=== PATIENT | male | born 1950 | race Caucasian/White ===

== ENCOUNTER 2016-12-01 10:23 | Emergency (ER) | payer MEDICARE, BC ==
[2016-12-01 10:50] LABS: Hemoglobin 14.1 gm/dL (13.5-18.0); Mean Cell Volume 85.9 fl (78-100); Mean Corpuscular Hemoglobin 28.8 pg (27-31); Mean Corpuscular Hgb Conc 33.6 g/dl (32-36); Mean Platelet Volume 9.3 fl (6.0-9.5); Neutrophil # 5.2 K/mm3 (1.3-6.0); Neutrophil % 72.5 % (42-75.0); Platelet Count 278 K/mm3 (150-450); Red Blood Count 4.89 M/mm3 (4.7-6.0); Red Cell Distribution Width 13.6 % (11.5-14.0); White Blood Count 7.2 K/mm3 (4.0-10.5)
--- NOTE | 2016-12-01 10:52 | ERNOTE ---
Chest Pain/Cardiac HPI Chief Complaint: Chest Pain Time Seen by Provider: 12/01/16 10:43 Source: patient, family Exam Limitations: no limitations Immunizations: IMMUNIZATION HX Immunizations Up to Date Yes Immunizations Comment shingles History of Influenza Vaccine Yes Hx Pneumococcal Vaccination Yes Allergies/Adverse Reactions: Allergies No Known Allergies Allergy (Verified 12/01/16 10:34) Home Medications: HOME MEDICATIONS Levothyroxine Sodium [Tirosint] 100 mcg PO DAILY 09/10/13 [Last Taken 09/09/13 07:00 50 MCG] [place]-3/Dha/Epa/Fish Oil [[place]-3 Fish Oil Softgel] 1 each PO DAILY 09/10/13 [ Last Taken 09/09/13 07:00 1 EACH] Warfarin Sodium [Coumadin] 2.5 mg PO ONCE 09/10/13 [Last Taken 09/08/13 21:00 2.5 MG] Warfarin Sodium [Coumadin] 5 mg PO ONCE 09/10/13 [Last Taken 09/09/13 21:00 5 MG ] Tamsulosin HCl [Flomax] 0.4 mg PO DAILY@1800 #30 cap 05/11/16 [Last Taken Unknown] Cetirizine HCl [Zyrtec] 10 mg PO DAILY 12/01/16 [Last Taken Unknown] Diltiazem HCl [Diltiazem 12Hr ER] 120 mg PO DAILY 12/01/16 [Last Taken Unknown] Omeprazole 40 mg PO DAILY 12/01/16 [Last Taken Unknown] Sucralfate [Carafate] 1 gm PO BID #28 tab 12/01/16 [Last Taken Unknown] Narrative: Patient presents with several complaints today. He complains of general overall fatigue with chronic shortness of breath and he also has epigastric burning that goes up substernally. Patient recently had his blood pressure medicine changed from metoprolol to Cardizem because of poorly controlled fibrillation. Gastric burning and substernal burning has been ongoing for the past week or 2 and he describes it as moderate in intensity. Timing: constant Severity/Quality: moderate, burning Location: substernal, epigastric Chest Pain Radiation: no radiation Activities at Onset: none Modifying Factors - Improves: Present: nothing Modifying Factors - Worsens: Present: nothing Aspirin Treatment Today: no aspirin today Associated Symptoms: Present: heartburn Prior Chest Pain/Cardiac Workup: Reports: non-cardiac Prior Treatment: Reports: recently seen, treated by physician Review of Systems - Review of Systems Constitutional: Present: See HPI EYE: Present: no symptoms reported ENT: Present: no symptoms reported Respiratory: Present: shortness of breath Cardiology: Present: palpitations Gastrointestinal/Abdominal: Present: abdominal pain Genitourinary: Present: no symptoms reported Musculoskeletal: Present: no symptoms reported Skin: Present: no symptoms reported Neurological: Present: no symptoms reported Endocrine: Present: no symptoms reported Hematologic/Lymphatic: Present: no symptoms reported Psych: Present: no symptoms reported - Patient's Past Medical History Patient History - Medical: Hypothyroidism Patient History - Cardiac/Respiratory: Atrial Fibrillation, Hypertension, Hyperlipidemia Patient History - Cancer: No Hx of Cancer Patient History - Surgical Procedures: Other Patient History - Other: None - Social History Living Situations: home Psych History: No pertinent hx Smoking Status: Never smoker Alcohol Use: occasionally Drug Use: none - Immunizations Immunizations Up to Date: Yes Hx Pneumococcal Vaccination: Yes History of Influenza Vaccine: Yes Physical Exam - Physical Exam General Appearance: Present: wd/wn, alert, moderate distress Eye Exam: Normal inspection: bilateral, PERRL: bilateral Ears, Nose, Throat: Present: normal ENT inspection, H, normal pharynx Neck: Present: normal inspection, nontender Respiratory: Present: no respiratory distress, normal breath sounds, no accessory muscle use, chest nontender, lungs clear Cardiovascular/Chest: Present: no murmur, normal peripheral pulses, irregularly irregular Gastrointestinal/Abdominal: Present: normal bowel sounds, nondistended, soft, no organomegaly, tenderness - in the epigastric region Rectal Exam: Present: deferred Back Exam: Present: normal inspection, normal range of motion Extremity Exam: Present: normal inspection, non-tender, no edema, normal range of motion Neurological Exam: Present: alert, oriented, normal mood/affect Skin Exam: Present: normal color, warm/dry Lymphatic Exam: Present: no adenopathy ED Progress - Results and Orders Patient's Lab Results:: I have reviewed the patient's lab results. - Vital Signs Patient's Vital Signs:: I have reviewed the patient's vital signs. Vital Signs: Vital Signs 12/01/16 10:29 Pulse Rate 69 Respiratory 16 Rate Blood Pressure 114/70 O2 Sat by Pulse 98 Oximetry - EKG EKG: atrial fibrillation - X-Ray X-Ray #1 X-Ray: chest Interpretation: Reviewed by me - Progress/Reassessment Chief Complaint: Chest Pain Progress:: Improved Plan - Plan Plan: Patient responded nicely to the GI cocktail and I suspect that he has underlying GERD. I also suspect that much of his shortness of breath from exertion is coming from his chronic A. fib and I will refer patient back to Dr. Martinez for ongoing care. Departure - Departure Clinical Impression: Atrial fibrillation Qualifiers: Atrial fibrillation type: chronic Qualified Code(s): I48.2 - Chronic atrial fibrillation GERD (gastroesophageal reflux disease) Qualifiers: Esophagitis presence: with esophagitis Qualified Code(s): K21.0 - Gastro- esophageal reflux disease with esophagitis Disposition: Home self-care Condition: Good Instructions: Heartburn, [id number], Atrial Fibrillation, [id number] Referrals: Yoly Martinez DO [Primary Care Provider] - Prescriptions: Sucralfate [Carafate] 1 gm PO BID #28 tab
[2016-12-01 10:54] LABS: Prothrombin Time (Patient) 22.7 Seconds (9.4-11.4)
[2016-12-01 10:56] LABS: INR 2.18 INR (0.90-1.10); Partial Thrombolplastin Time 35.6 Seconds (24-32)
[2016-12-01] MEDS: LIDOCAINE HCL 20 ML UDC PO ONE (11:00)
[2016-12-01] MEDS: BELLADONNA ALKALOIDS/PHENOBARB 60 ML BTL PO ONE (11:00)
[2016-12-01] MEDS: MAG HYDROX/ALUMINUM HYD/SIMETH 30 ML UDC PO ONE (11:00)
[2016-12-01 11:08] LABS: ALT 18 U/L (19-67); AST 10 U/L (0-48); Albumin * 3.7 gm/dl (3.4-5.0); Alkaline Phosphatase * 64 U/L (50-170); Anion Gap 10.9 mmol/L (6.8-13.8); BUN/Creatinine Ratio 12.8 (9.0-21.6); Bilirubin, Total 0.9 mg/dL (0.0-1.1); Blood Urea Nitrogen 14 mg/dL (6-23); Ca. Corrected For Albumin 8.6 mg/dL (8.4-10.2); Calcium * 8.7 mg/dL (7.9-10.9); Carbon Dioxide 25.8 mmol/L (24-32.6); Chloride 105 mmol/L (97-106); Glucose * 139 mg/dL (70-110); Potassium 3.7 mmol/L (3.4-4.6); Sodium 138 mmol/L (132-142)
[2016-12-01 11:09] LABS: Troponin I Less than 0.017 ng/ml (0.00-0.10)
[2016-12-01 11:18] LABS: Urine Bilirubin Negative (NEGATIVE); Urine Blood Negative /ul (NEGATIVE); Urine Ketone Negative (NEGATIVE); Urine Nitrite Negative (NEGATIVE); Urine Protein Negative (NEGATIVE); Urine Specific Gravity <=1.005 SP.GR. (1.005-1.030); Urine Urobilinogen Normal (NORMAL)
[2016-12-01 11:24] LABS: Urine Appearance Clear; Urine Bacteria None Seen; Urine Color Yellow; Urine RBC None Seen /hpf (0-5); Urine WBC None Seen /hpf (0-5)
[2016-12-01 12:40] VITALS: BP 117/78
== END 2016-12-01 12:37 | disposition home or self-care (01) ==
LOC: ER 10:23
DX: I48.2 Chronic atrial fibrillation (principal); K21.0 Gastro-esophageal reflux disease with esophagitis

== ENCOUNTER 2016-12-04 15:10 | Emergency (ER) | payer MEDICARE, BC ==
[2016-12-04 16:02] LABS: Hematocrit 41.6 % (42.0-52.0); Hemoglobin 13.9 gm/dL (13.5-18.0); Mean Cell Volume 86.1 fl (78-100); Mean Corpuscular Hemoglobin 28.8 pg (27-31); Mean Corpuscular Hgb Conc 33.4 g/dl (32-36); Mean Platelet Volume 9.1 fl (6.0-9.5); Neutrophil # 5.1 K/mm3 (1.3-6.0); Neutrophil % 69.7 % (42-75.0); Platelet Count 258 K/mm3 (150-450); Red Blood Count 4.83 M/mm3 (4.7-6.0); Red Cell Distribution Width 13.8 % (11.5-14.0); White Blood Count 7.3 K/mm3 (4.0-10.5)
[2016-12-04 16:11] LABS: ALT 15 U/L (19-67); AST 9 U/L (0-48); Albumin * 3.7 gm/dl (3.4-5.0); Alkaline Phosphatase * 71 U/L (50-170); Anion Gap 13.5 mmol/L (6.8-13.8); BUN/Creatinine Ratio 14.3 (9.0-21.6); Bilirubin, Total 0.8 mg/dL (0.0-1.1); Blood Urea Nitrogen 14 mg/dL (6-23); Ca. Corrected For Albumin 8.4 mg/dL (8.4-10.2); Calcium * 8.5 mg/dL (7.9-10.9); Carbon Dioxide 25.5 mmol/L (24-32.6); Chloride 104 mmol/L (97-106); Glucose * 107 mg/dL (70-110); Sodium 139 mmol/L (132-142); Total Protein 7.2 gm/dL (6.2-8.2)
[2016-12-04 16:12] LABS: Troponin I Less than 0.017 ng/ml (0.00-0.10)
[2016-12-04 16:14] LABS: Prothrombin Time (Patient) 26.8 Seconds (9.4-11.4)
[2016-12-04] MEDS ORDERED: MAG HYDROX/ALUMINUM HYD/SIMETH 30 ML UDC PO ONE (16:43)
[2016-12-04] MEDS ORDERED: LIDOCAINE HCL 20 ML UDC PO ONE (16:43)
[2016-12-04] MEDS ORDERED: SUCRALFATE 1 G/10 ML UDC PO ONE (16:43)
[2016-12-04 16:48] LABS: INR 2.58 INR (0.90-1.10)
--- NOTE | 2016-12-04 16:53 | ERNOTE ---
Chest Pain/Cardiac HPI Chief Complaint: Chest Pain Time Seen by Provider: 12/04/16 16:18 Source: patient Exam Limitations: no limitations Immunizations: IMMUNIZATION HX Immunizations Up to Date Yes History of Influenza Vaccine Yes Hx Pneumococcal Vaccination Yes Allergies/Adverse Reactions: Allergies No Known Allergies Allergy (Verified 12/04/16 16:37) Home Medications: HOME MEDICATIONS Levothyroxine Sodium [Tirosint] 100 mcg PO DAILY 09/10/13 [Last Taken 09/09/13 07:00 50 MCG] [place]-3/Dha/Epa/Fish Oil [[place]-3 Fish Oil Softgel] 1 each PO DAILY 09/10/13 [ Last Taken 09/09/13 07:00 1 EACH] Warfarin Sodium [Coumadin] 2.5 mg PO ONCE 09/10/13 [Last Taken 09/08/13 21:00 2.5 MG] Warfarin Sodium [Coumadin] 5 mg PO ONCE 09/10/13 [Last Taken 09/09/13 21:00 5 MG ] Tamsulosin HCl [Flomax] 0.4 mg PO DAILY@1800 #30 cap 05/11/16 [Last Taken Unknown] Cetirizine HCl [Zyrtec] 10 mg PO DAILY 12/01/16 [Last Taken Unknown] Diltiazem HCl [Diltiazem 12Hr ER] 120 mg PO DAILY 12/01/16 [Last Taken Unknown] Omeprazole 40 mg PO DAILY 12/01/16 [Last Taken Unknown] Sucralfate [Carafate] 1 gm PO BID #28 tab 12/01/16 [Last Taken Unknown] Narrative: Patient has had intermittent chest pain for two weeks. He was seen in the walk in clinic once and in the ER three days ago, lab test and FKG did not show anything acute, GI cocktail relieve his symptoms for two days. Symptoms started to again last night after watering his garden, no symptoms while sleepling He has a history of a-fib for many years, no history of CAD Timing: intermittent Severity/Quality: mild Location: central, epigastric Chest Pain Radiation: no radiation Activities at Onset: activity Nitro Today/Relief: no nitro taken today Review of Systems - Review of Systems Constitutional: Present: fatigue, malaise. Absent: recent illness EYE: Absent: vision changes ENT: Absent: sore throat Respiratory: Present: shortness of breath Cardiology: Present: See HPI, chest pain Gastrointestinal/Abdominal: Present: abdominal pain - epigastric. Absent: nausea, vomiting, diarrhea Genitourinary: Absent: frequency Neurological: Absent: headache, weakness, numbness - Patient's Past Medical History Patient History - Medical: GERD, Hypothyroidism, Kidney stone Patient History - Cardiac/Respiratory: Atrial Fibrillation, Hypertension, Hyperlipidemia Patient History - Cancer: No Hx of Cancer Patient History - Surgical Procedures: Other Patient History - Other: None - Social History Living Situations: home Psych History: No pertinent hx Smoking Status: Never smoker Have you smoked in the past 12 months: No Alcohol Use: occasionally Drug Use: none - Immunizations Immunizations Up to Date: Yes Hx Pneumococcal Vaccination: Yes History of Influenza Vaccine: Yes Physical Exam - Physical Exam General Appearance: Present: wd/wn, alert, no apparent distress, obese Ears, Nose, Throat: Present: normal pharynx Respiratory: Present: no respiratory distress, normal breath sounds, no accessory muscle use, lungs clear, chest tenderness - parasternal Cardiovascular/Chest: Present: regular rate, rhythm, no murmur Gastrointestinal/Abdominal: Present: normal bowel sounds, nondistended, soft, tenderness - epigastric Extremity Exam: Present: no edema Neurological Exam: Present: alert, oriented, normal mood/affect Skin Exam: Present: normal color, warm/dry ED Progress - Results and Orders Patient's Lab Results:: I have reviewed the patient's lab results. - Vital Signs Patient's Vital Signs:: I have reviewed the patient's vital signs. Vital Signs: Vital Signs 12/04/16 12/04/16 15:10 15:17 Temperature 36.8 C Pulse Rate 76 Respiratory 18 Rate Blood Pressure 114/70 145/80 O2 Sat by Pulse 99 Oximetry - EKG EKG: atrial fibrillation, unchanged from - 12/01/2016 EKG read: Interp. by me - X-Ray X-Ray #1 X-Ray: chest - diffuse hyperinflation, no acute changes Interpretation: Reviewed by me - Progress/Reassessment Chief Complaint: Chest Pain Progress Note-Subjective: 12/04/16 16:51 discussed results with patient and family, serial labs and EKG normal, CAD not completely ruled out but less likely than GERD at this point, still recommended further evaluation 12/04/16 17:18 pain completely resolved after GI cocktail again Departure - Departure Clinical Impression: GERD (gastroesophageal reflux disease) Qualifiers: Esophagitis presence: esophagitis presence not specified Qualified Code(s): K21.9 - Gastro-esophageal reflux disease without esophagitis Disposition: Home self-care Condition: Good Instructions: Heartburn, [id number] Additional Instructions: consider calling Dr Mckeon for follow up follow up with Dr Martinez as scheduled Referrals: Yoly Martinez DO [Primary Care Provider] -
[2016-12-04 17:25] VITALS: BP 135/73
== END 2016-12-04 17:26 | disposition home or self-care (01) ==
LOC: ER 15:10
DX: K21.9 Gastro-esophageal reflux disease without esophagitis (principal); E03.9 Hypothyroidism, unspecified; I48.91 Unspecified atrial fibrillation; Z79.01 Long term (current) use of anticoagulants; I10 Essential (primary) hypertension; E78.5 Hyperlipidemia, unspecified

== ENCOUNTER 2017-03-04 23:45 | Emergency (ER) | payer MEDICARE, BC ==
[2017-03-05 00:45] LABS: Urine Bilirubin Negative (NEGATIVE); Urine Blood 250 /ul (NEGATIVE); Urine Ketone Negative (NEGATIVE); Urine Nitrite Negative (NEGATIVE); Urine Protein 15 mg/dL (NEGATIVE); Urine Specific Gravity 1.025 SP.GR. (1.005-1.030); Urine Urobilinogen Normal (NORMAL); Urine pH 5.5 pH (5.0-7.0)
[2017-03-05] MEDS ORDERED: KETOROLAC TROMETHAMINE 30 MG/ML VIAL IV ONE (00:49)
[2017-03-05] MEDS ORDERED: ONDANSETRON HCL/PF 2 MG/ML VIAL IV ONE ×2 (00:49→02:42)
[2017-03-05] MEDS ORDERED: NORMAL SALINE 1,000 ML IV ONE (00:49)
--- NOTE | 2017-03-05 00:51 | ERNOTE ---
ER Male HPI Stated Complaint: DORIS DUARTE ER Male: testicular pain Time Seen by Provider: 03/05/17 00:43 Source: patient Exam Limitations: no limitations Immunizations: IMMUNIZATION HX Immunizations Up to Date Yes History of Influenza Vaccine Yes Hx Pneumococcal Vaccination Yes Allergies/Adverse Reactions: Allergies No Known Allergies Allergy (Verified 12/04/16 16:37) Home Medications: HOME MEDICATIONS Levothyroxine Sodium [Tirosint] 112 mcg PO DAILY 09/10/13 [Last Taken 09/09/13 07:00 50 MCG] [place]-3/Dha/Epa/Fish Oil [[place]-3 Fish Oil Softgel] 1 each PO DAILY 09/10/13 [ Last Taken 09/09/13 07:00 1 EACH] Warfarin Sodium [Coumadin] 2.5 mg PO SUWE 09/10/13 [Last Taken 09/08/13 21:00 2.5 MG] Warfarin Sodium [Coumadin] 5 mg PO MOTUTHFRSA 09/10/13 [Last Taken 09/09/13 21: 00 5 MG] Tamsulosin HCl [Flomax] 0.4 mg PO DAILY@1800 #30 cap 05/11/16 [Last Taken Unknown] Diltiazem HCl [Diltiazem 12Hr ER] 240 mg PO DAILY 12/01/16 [Last Taken Unknown] Omeprazole 40 mg PO BID 12/01/16 [Last Taken Unknown] HYDROcodone/ACETAMINOPHEN [[place] 5-325 Tablet] 1 - 2 each PO Q4H PRN #20 tablet 03/05/17 [Last Taken Unknown] Ondansetron HCl [Zofran] 1 - 2 tab PO Q8H PRN #10 tab 03/05/17 [Last Taken Unknown] - History of Present Illness Narrative: Pt states he lay down to sleep and began to have testicular pain, He got up to urinate but was unable to. He went back to bed and got up to have a BM which did relieve some pain. Pain then increased again and he presented to the ED. Timing: Present: getting worse Quality: Present: moderate, aching Onset Location: Present: scrotal Activities at Onset: Present: rest Prior Abdominal Problems: Present: other Review of Systems - Review of Systems Constitutional: Absent: recent illness EYE: Present: no symptoms reported ENT: Present: no symptoms reported Respiratory: Absent: shortness of breath Cardiology: Absent: chest pain Gastrointestinal/Abdominal: Present: nausea, vomiting. Absent: abdominal pain Genitourinary: Present: See HPI Musculoskeletal: Present: no symptoms reported Skin: Present: no symptoms reported Neurological: Present: no symptoms reported Endocrine: Present: no symptoms reported Hematologic/Lymphatic: Present: no symptoms reported Psych: Present: no symptoms reported - Patient's Past Medical History Patient History - Medical: GERD, Hypothyroidism, Kidney stone Patient History - Cardiac/Respiratory: Atrial Fibrillation, Hypertension, Hyperlipidemia Patient History - Cancer: No Hx of Cancer Patient History - Surgical Procedures: Colonoscopy, T & A, Orthopedic Patient History - Other: None - Social History Living Situations: spouse Abuse History: No History of abuse Psych History: No pertinent hx Smoking Status: Never smoker Have you smoked in the past 12 months: No Do you dip or chew tobacco: No Alcohol Use: occasionally Drug Use: none - Immunizations Immunizations Up to Date: Yes Hx Pneumococcal Vaccination: Yes History of Influenza Vaccine: Yes Physical Exam - Physical Exam General Appearance: Present: wd/wn, alert, mild distress Head Exam: Present: normal inspection, no evidence of injury Neck: Present: normal inspection, supple Respiratory: Present: no respiratory distress, no accessory muscle use Gastrointestinal/Abdominal: Present: nontender, nondistended, soft Back Exam: Present: normal range of motion, CVA tenderness (L) Extremity Exam: Present: normal inspection, normal range of motion, no edema Neurological Exam: Present: alert, oriented, no motor/sensory deficits Skin Exam: Present: normal color, warm/dry Lymphatic Exam: Present: no adenopathy ED Progress - Results and Orders Patient's Lab Results:: I have reviewed the patient's lab results. Results and Orders: Laboratory Tests 03/05/17 03/05/17 03/05/17 00:00 01:16 01:16 WBC 8.5 Hgb 14.5 Hct 43.7 Plt Count 271 Sodium 139 Potassium 4.2 Chloride 105 Carbon Dioxide 26.8 BUN 24 H Creatinine 1.53 H D Random Glucose 117 H Calcium 9.0 Total Bilirubin 0.5 AST 18 ALT 22 Alkaline Phosphatase 92 Total Protein 7.8 Albumin 4.0 Urine Color Yellow Urine Appearance Slightly cloudy Urine pH 5.5 Ur Specific [place] 1.025 Urine Protein 15 H Urine Glucose (UA) Negative Urine Ketones Negative Urine Blood 250 H Urine Nitrate Negative Urine Bilirubin Negative Prot Sulfosalicylic Acd Negative Urine Urobilinogen Normal Ur Leukocyte Esterase Negative Urine RBC 10-25 H Urine WBC Trace Ur Epithelial Cells Trace Urine Bacteria Trace Urine Mucus Few - 1+ H Urine Sperm Few - 1+ H Urine Culture Comments No culture indicated - Vital Signs Patient's Vital Signs:: I have reviewed the patient's vital signs. Vital Signs: Vital Signs 03/04/17 23:49 Temperature 36.1 C L Pulse Rate 84 Respiratory 16 Rate Blood Pressure 126/91 O2 Sat by Pulse 99 Oximetry - CT/Ultrasound CT/Ultrasound Narrative: CT abd/pelvis stone protocol Interstitial thickening RLL may be chronic. left obstructive uropathy with mild hydronephrosis secondary to 3mm UVJ calculus small b/l intrarenal calculi patulous inguinal canals with no herniated bowel mildly enlarged partially imaged prostate mild fecal retention appendix WNL Tiny umbilical hernia contains fat only spondylosis - Progress/Reassessment Chief Complaint: Genitourinary Problem Progress:: Improved Progress Note-Subjective: 03/05/17 02:42 Patient having more pain and nausea. Discussed stone size and location. ordered nubain and zofran 03/05/17 04:46 Pt felt much better after nubain. Discussed oral medications and follow up if not improving. Pt expressed understanding Departure Clinical Impression: Ureteral calculus, left - Departure Disposition: Home self-care Condition: Good Instructions: Kidney Stones, [id number] Additional Instructions: See your urologist if pain continues more than 2-3 more days Referrals: Yoly Martinez DO [Primary Care Provider] - Prescriptions: HYDROcodone/ACETAMINOPHEN [[place] 5-325 Tablet] 1 - 2 each PO Q4H PRN #20 tablet PRN Reason: Pain Ondansetron HCl [Zofran] 1 - 2 tab PO Q8H PRN #10 tab PRN Reason: Nausea
[2017-03-05 00:57] LABS: Urine Appearance Slightly Cloudy; Urine Bacteria TRACE; Urine Color Yellow; Urine Mucus Few - 1+; Urine Sperm Few - 1+; Urine WBC TRACE /hpf (0-5)
[2017-03-05] MEDS ORDERED: ONDANSETRON HCL/PF 2 MG/ML VIAL ONE ×2 (01:13→02:44)
[2017-03-05] MEDS ORDERED: KETOROLAC TROMETHAMINE 30 MG/ML VIAL ONE (01:13)
[2017-03-05 01:17] LABS: Hematocrit 43.7 % (42.0-52.0); Hemoglobin 14.5 gm/dL (13.5-18.0); Mean Cell Volume 89.4 fl (78-100); Mean Corpuscular Hemoglobin 29.7 pg (27-31); Mean Corpuscular Hgb Conc 33.2 g/dl (32-36); Mean Platelet Volume 9.4 fl (6.0-9.5); Neutrophil % 70.7 % (42-75.0); Platelet Count 271 K/mm3 (150-450); Red Blood Count 4.89 M/mm3 (4.7-6.0); Red Cell Distribution Width 13.8 % (11.5-14.0); White Blood Count 8.5 K/mm3 (4.0-10.5)
[2017-03-05 01:32] LABS: Anion Gap 11.4 mmol/L (6.8-13.8); BUN/Creatinine Ratio 15.7 (9.0-21.6); Bilirubin, Total 0.5 mg/dL (0.0-1.1); Ca. Corrected For Albumin 8.7 mg/dL (8.4-10.2); Carbon Dioxide 26.8 mmol/L (24-32.6); Potassium 4.2 mmol/L (3.4-4.6); Total Protein 7.8 gm/dL (6.2-8.2)
[2017-03-05] MEDS ORDERED: NALBUPHINE HCL 20 MG/ML AMPUL IV ONE (02:38)
[2017-03-05] MEDS ORDERED: NALBUPHINE HCL 20 MG/ML AMPUL ONE (02:44)
[2017-03-05] MEDS ORDERED: HYDROcodone/ACETAMINOPHEN 1 EACH TABLET PO ONE (03:29)
[2017-03-05] MEDS ORDERED: HYDROcodone/ACETAMINOPHEN 1 EACH TABLET ONE (03:35)
[2017-03-05 04:02] VITALS: BP 118/66
== END 2017-03-05 03:43 | disposition home or self-care (01) ==
LOC: ER 23:45
DX: N20.1 Calculus of ureter (principal); Z87.442 Personal history of urinary calculi; I48.91 Unspecified atrial fibrillation; Z79.01 Long term (current) use of anticoagulants; E03.9 Hypothyroidism, unspecified; K21.9 Gastro-esophageal reflux disease without esophagitis; I10 Essential (primary) hypertension
CPT/HCPCS: 36415; 74176; 80053; 81001; 85025; 96374; 96375; 99284; J2405